=== PATIENT | female | born 1990 | race African-American/Black ===

== ENCOUNTER 2022-09-30 07:00 | Emergency (ER) | payer MEDICAID, OTHER ==
[~2022-09-30] VITALS: Ht 170.2 cm; Wt 61.0 kg
[2022-09-30] MEDS ORDERED: IBUP-2029 MT (08:51)
[2022-09-30] MEDS ORDERED: AMOX-494 MT (08:51)
[2022-09-30 09:08] VITALS: BP 119/74
== END 2022-09-30 09:11 | disposition home or self-care (01) ==
LOC: ER 07:00
DX: H66.92 Otitis media, unspecified, left ear (principal)
CPT/HCPCS: 99283